=== PATIENT | male | born 1985 | race Two or more races ===

== ENCOUNTER 2022-06-24 15:23 | Emergency (ER) | payer OTHER ==
[~2022-06-24] VITALS: Ht 170.2 cm; Wt 65.8 kg
[2022-06-24 16:12] VITALS: BP 117/64
[2022-06-24 16:47] LABS: BASOPHILS % (AUTO) 0.1 % (0.0-2.0); EOSINOPHILS # (AUTO) 0.1 K/uL (0-0.4); EOSINOPHILS % (AUTO) 0.6 % (0.0-4.0); HEMATOCRIT 47.6 % (36-52); HEMOGLOBIN 16.5 g/dL (12.0-18.0); LYMPHOCYTES # (AUTO) 1.2 K/uL (2.0-11.5); LYMPHOCYTES % (AUTO) 10.5 % (20.5-51.1); MEAN CORPUSCULAR HEMOGLOBIN 33 pg (27-31); MEAN CORPUSCULAR HGB CONC 35 g/dL (33-37); MEAN CORPUSCULAR VOLUME 94.5 fL (80-94); MONOCYTES # (AUTO) 0.4 K/uL (0.8-1.0); MONOCYTES % (AUTO) 3.8 % (1.7-9.3); NEUTROPHILS # (AUTO) 9.9 K/uL (1.8-7.7); PLATELET COUNT (AUTO) 331 K/uL (140-450); RED BLOOD CELL COUNT(AUTO) 5.04 MIL/uL (4.20-6.10); RED CELL DISTRIBUTION WIDTH 12.1 % (11.6-13.7); WHITE BLOOD COUNT (AUTO) 11.6 K/uL (4.8-10.8)
[2022-06-24 17:23] LABS: ALBUMIN 4.3 g/dL (3.4-5.0); ANION GAP 14.2 (8-16); CARBON DIOXIDE 31.5 mmol/L (21-32); CREATININE 1.3 mg/dL (0.6-1.3); POTASSIUM 3.7 mmol/L (3.5-5.1); TOTAL BILIRUBIN 0.9 mg/dL (0.0-1.0)
--- NOTE | 2022-06-24 17:55 | NUR ---
N/A IN ER LOBBY
--- NOTE | 2022-06-24 18:47 | NUR ---
3RD CALLED JAZMIN ZAVALA
== END 2022-06-24 17:55 | disposition left against medical advice (07) ==
LOC: MED 15:23
DX: R10.31 Right lower quadrant pain (principal)
CPT/HCPCS: 36415; 80053; 83690; 85025; 99283